=== PATIENT | female | born 1990 | race Two or more races ===

== ENCOUNTER 2018-06-20 19:23 | Emergency (ER) | payer BC, OTHER ==
[~2018-06-20] VITALS: Ht 170.2 cm; Wt 54.4 kg
[2018-06-20 19:46] VITALS: BP 113/69
[2018-06-20] MEDS ORDERED: CYCLOBENZAPRINE 10 MG TABLET PO ONE (20:30)
[2018-06-20] MEDS ORDERED: HYDROCODONE/APAP 5/325MG 1 EACH TABLET PO ONE (20:30)
[2018-06-20] MEDS ORDERED: HYDROCODONE/APAP 5/325MG 1 EACH TABLET ONE (20:57)
[2018-06-20] MEDS ORDERED: CYCLOBENZAPRINE 10 MG TABLET ONE (20:57)
== END 2018-06-20 21:09 | disposition home or self-care (01) ==
LOC: ER 19:26
DX: S16.1XXA Strain of muscle, fascia and tendon at neck level, initial encounter (principal); S80.11XA Contusion of right lower leg, initial encounter; M54.5 Low back pain; V49.49XA Driver injured in collision with other motor vehicles in traffic accident, initial encounter; Y93.89 Activity, other specified; Y92.410 Unspecified street and highway as the place of occurrence of the external cause; Y99.8 Other external cause status
CPT/HCPCS: 72050-TC; A4606; Z7610